=== PATIENT | female | born 1995 | race Caucasian/White ===

== ENCOUNTER → 2016-08-15 | Day surgery (SDC) | payer BC ==
[2016-08-08 13:56] VITALS: Ht 160 cm; Wt 53.6 kg
--- NOTE | 2016-08-14 21:30 | HISTORY & PHYSICAL EXAMINATION ---
DATE OF ADMISSION: 08/15/2016 DIAGNOSIS: Chronic tonsillitis. HISTORY OF PRESENT ILLNESS: This 20-year-old lady presented with recurrent chronic tonsillitis. PAST MEDICAL HISTORY: MEDICAL PROBLEMS: None. PREVIOUS SURGERIES: Hernia repair. MEDICATIONS: Sertraline, doxycycline and Ativan. ALLERGIES: No known drug allergies. FAMILY HISTORY: Negative. SOCIAL HISTORY: Negative. REVIEW OF SYSTEMS: Positive for anxiety. PHYSICAL EXAMINATION: GENERAL: WNWD female. VITAL SIGNS: 5 feet 2 inches and 115 pounds. HEAD: Normocephalic. EYES: Normal. EARS: Tympanic membranes intact. NOSE: Nasal passages swollen turbinates. THROAT: Oropharynx shows 3+ tonsillar hypertrophy. NECK: Supple. HEART: RRR. LUNGS: Clear. ABDOMEN: Soft. GENITOURINARY: Deferred. IMPRESSION: Chronic tonsillitis. PLAN: For adenotonsillectomy.
[~2016-08-15] VITALS: Ht 160 cm; Wt 53.6 kg
[~2016-08-15] MED LIST: ACETAMINOPHEN/HYDROCODONE ELIX 15 ML/CUP UDP PO PRN; ATROPINE SULFATE 0.1 MG/ML 5ML SYR IV PRN; BUPIVACAINE/EPINEPHRINE 0.5% MPF 1:200,000 30 ML VIAL ONE; CHECK SCOPOLAMINE PATCH PLACEMENT SCH; DEXAMETHASONE SOD INJ 4 MG/ML VIAL ONE; EpHEDrine SULFATE INJ 50 MG/ML AMP IV PRN; FENTANYL CITRATE INJ 50 MCG/1 ML 2 ML VIAL IV PRN; FENTANYL CITRATE INJ 50 MCG/1 ML 2 ML VIAL ONE; FEXO5TAB2 PO; GLYCOPYRROLATE INJ 0.2 MG/ML VIAL ONE; HYDR1SOL10 PO; LACTATED RINGER'S 1000ML 1,000 ML IV SCH; LIDOCAINE HCL 2% 2 ML VIAL (20MG/ML) ONE; LORA-741 PO; MIDAZOLAM HCL 1 MG/ML 2ML VIAL ONE; NEOSTIGMINE METHYLSULFATE 5 MG/5 ML SYR ONE; ONDANSETRON INJ 2 MG/ML 2 ML VIAL IV PRN; ONDANSETRON INJ 2 MG/ML 2 ML VIAL ONE; PROPOFOL IV EMULSION 10 MG/ML 20 ML VIAL IV ONE; SCOPOLAMINE 1.5 MG TDSY TD ONE; SODIUM CHLORIDE 0.9% 1000ML 1,000 ML IV SCH
--- NOTE | 2016-08-15 07:20 | History & Physical Bridge Note ---
H&P Re-Evaluation Bridge Note: I have examined the patient, reviewed the History & Physical and in the interval since the performance of the History & Physical I have noted the following changes of clinical significance: No changes noted
--- NOTE | 2016-08-15 07:28 | Discharge Instructions-SurgCtr ---
Discharge Instructions Date of Service August 15, 2016. Visit Reason for Visit: Chronic Tonsillitis Discharge Discharge Diagnosis / Problem: same Discharge Goals Goal(s): Improve disease control Activity Recommendations Activity Limitations: per Instructions/Follow-up section Anesthesia . Post Anesthesia Instructions: If you have had General Anesthesia or IV Sedation: * Do not drive today. * Resume driving when surgeon permits. * Do not make important decisions or sign legal documents today. * Call surgeon for: 1. Temperature elevations greater than 101 degrees F. 2. Uncontrollable pain. 3. Excessive bleeding. 4. Persistent nausea and vomiting. 5. Medication intolerance (nausea, vomiting or rash). * For nausea and vomiting use only clear liquids such as: tea, soda, bouillon until nausea subsides, then gradually increase diet as tolerated. * If you have any concerns or questions, call your surgeon's office. If physician is unavailable and it is an emergency, call 911 or go to the nearest emergency room. . Instructions / Follow-Up Instructions / Follow-Up ACTIVITY RECOMMENDATIONS: * During the first few days, activities should be limited. * Stay indoors for several days. * After 48 hours, activity can gradually be increased to normal activity. RETURN TO SCHOOL/WORK: * Return to school or work in one week. * No physical education for two weeks. OVER THE COUNTER MEDICATIONS: * You may use Tylenol * Avoid aspirin or aspirin containing products, e.g. as they may increase bleeding. SPECIAL CARE INSTRUCTIONS: * Avoid coughing or clearing the throat. * Do not use a straw. * A sore throat is expected frequently accompanied by pain radiating to the ears. This is normal. * Expect bad breath until "scabs" are healed. * Notify the doctor if bleeding occurs, vomiting, temperature greater than 101 degrees Fahrenheit. Call or cell phone: . * If bleeding occurs, it is usually in the first 24 hours or after the 5th day. If unable to reach the doctor, go to the nearest Emergency Department. Special Diet: * Fluids are very important and should be encouraged to maintain adequate hydration. * To maintain nutrition, eat soft foods and after 48 hours the consistency of foods can be increased. Examples are jello, soup, pasta, ice cream and mashed foods. FOLLOW UP VISIT: Follow-up visit with Dr. Vazquez in 2 weeks. Please call to schedule if not already scheduled. Diet Recommendations Home Diet: special diet Diet Texture: Mechanical Soft (ground) Pending Studies Studies pending at discharge: no Medical Emergencies . Who to Call and When: Medical Emergencies: If at any time you feel your situation is an emergency, please call 911 immediately. . Non-Emergent Contact Non-Emergency issues call your: Primary Care Provider . . "Provider Documentation" section prepared by Kierra Vazquez. . [place] Drug Monitoring Program Search Results: no issues identified
[2016-08-15 08:53] VITALS: TEMP 37.3
[2016-08-15 09:21] VITALS: BP 107/71; PULSE 56; O2SAT 100
--- NOTE | 2016-08-15 09:25 | Anesthesia Progress Nt - [facility] ---
Anesthesia Post Op Note Date & Time August 15, 2016 at 09:25 Vital Signs Pain Intensity: 2.0 Vital Signs Past 12 Hours Date Time Temp Pulse Resp B/P Pulse Ox O2 Delivery O2 Flow Rate FiO2 08/15/16 09:21 56 16 107/71 100 Room Air 08/15/16 08:53 37.3 65 16 117/49 100 Room Air 08/15/16 08:37 77 14 08/15/16 08:37 78 14 99 08/15/16 08:36 108/68 08/15/16 08:34 36.7 75 16 108/68 99 Room Air 08/15/16 08:32 86 20 99 08/15/16 08:32 84 20 08/15/16 08:31 116/81 08/15/16 08:27 93 20 99 08/15/16 08:27 94 20 08/15/16 08:26 112/77 08/15/16 08:22 94 20 08/15/16 08:22 95 20 99 08/15/16 08:21 113/71 08/15/16 08:17 89 17 98 08/15/16 08:17 90 17 08/15/16 08:16 118/79 08/15/16 08:12 99 19 100 08/15/16 08:12 100 19 08/15/16 08:11 129/71 08/15/16 08:07 95 13 08/15/16 08:07 96 13 100 08/15/16 08:06 136/79 08/15/16 08:03 134/86 08/15/16 08:02 36.5 106 20 134/86 100 Humidified Oxygen 6 08/15/16 06:29 37.0 94 18 129/81 99 Room Air Notes Mental Status: alert / awake / arousable, participated in evaluation Pt Amnestic to Procedure: Yes Nausea / Vomiting: adequately controlled Pain: adequately controlled Airway Patency, RR, SpO2: stable & adequate BP & HR: stable & adequate Hydration State: stable & adequate Anesthetic Complications: no major complications apparent
--- NOTE | 2016-08-15 12:11 | OPERATIVE REPORT ---
DATE OF OPERATION: 08/15/2016 PREOPERATIVE DIAGNOSES: Chronic tonsillitis and adenoid hypertrophy. POSTOPERATIVE DIAGNOSIS: Same. PROCEDURE: Adenotonsillectomy. SURGEON: Dr. Vazquez. ANESTHESIA: General endotracheal. COMPLICATIONS: None. BLOOD LOSS: 5 mL. HISTORY OF PRESENT ILLNESS: A 20-year-old with recurrent chronic tonsillitis. OPERATION AND FINDINGS: PROCEDURE: The patient was brought to the operating room and placed in supine position. General endotracheal anesthesia was induced, draped in the usual manner. Mouth gag was placed. Peritonsillar area was injected with .5% Sensorcaine, 1:200:000 strength Epinephrine. Soft palate retracted using a red Corrales catheter. Tonsillectomy performed using the coblation device coblating out the tonsil from anterior to the posterior pillar and from the superior pole to the inferior pole. Both tonsils were removed in a similar manner. Hemostasis was controlled with the coblation device. Adenoidectomy was performed using the coblation technique and hemostasis controlled using the coblation technique. The patient tolerated the procedure well and was taken to the recovery room in satisfactory condition. I attest to the content of the Intraoperative Record and any orders documented therein. Any exceptio ns are noted below.
== END | disposition home or self-care (01) ==
LOC: X.SURG 06:16
PROVIDERS: ATTEND Otolaryngology
DX: J35.01 Chronic tonsillitis (principal); J35.2 Hypertrophy of adenoids

== ENCOUNTER → 2017-03-04 | Outpatient (CLI) | payer BC ==
[~2017-03-04] MED LIST changes: -ACETAMINOPHEN/HYDROCODONE ELIX 15 ML/CUP UDP PO PRN; -ATROPINE SULFATE 0.1 MG/ML 5ML SYR IV PRN; -BUPIVACAINE/EPINEPHRINE 0.5% MPF 1:200,000 30 ML VIAL ONE; -CHECK SCOPOLAMINE PATCH PLACEMENT SCH; -DEXAMETHASONE SOD INJ 4 MG/ML VIAL ONE; -EpHEDrine SULFATE INJ 50 MG/ML AMP IV PRN; -FENTANYL CITRATE INJ 50 MCG/1 ML 2 ML VIAL IV PRN; -FENTANYL CITRATE INJ 50 MCG/1 ML 2 ML VIAL ONE; -GLYCOPYRROLATE INJ 0.2 MG/ML VIAL ONE; -HYDR1SOL10 PO; -LACTATED RINGER'S 1000ML 1,000 ML IV SCH; -LIDOCAINE HCL 2% 2 ML VIAL (20MG/ML) ONE; -MIDAZOLAM HCL 1 MG/ML 2ML VIAL ONE; -NEOSTIGMINE METHYLSULFATE 5 MG/5 ML SYR ONE; -ONDANSETRON INJ 2 MG/ML 2 ML VIAL IV PRN; -ONDANSETRON INJ 2 MG/ML 2 ML VIAL ONE; -PROPOFOL IV EMULSION 10 MG/ML 20 ML VIAL IV ONE; -SCOPOLAMINE 1.5 MG TDSY TD ONE; -SODIUM CHLORIDE 0.9% 1000ML 1,000 ML IV SCH
[2017-03-07 01:23] LABS: CHLAMYDIA TRACH RNA*** NOT DETECTED (NOT DETECTED); GC (NEIS GONORRHOEAE)RNA** NOT DETECTED (NOT DETECTED)
== END | disposition home or self-care (01) ==
LOC: C.LABSPEC 17:29
PROVIDERS: ATTEND Obstetrics & Gynecology
DX: Z11.3 Encounter for screening for infections with a predominantly sexual mode of transmission (principal)

== ENCOUNTER → 2017-03-04 | Outpatient (CLI) | payer BC | END | disposition home or self-care (01) | LOC: C.PAPS 09:08 | PROVIDERS: ATTEND Obstetrics & Gynecology | DX: Z01.419 Encounter for gynecological examination (general) (routine) without abnormal findings (principal); R87.616 Satisfactory cervical smear but lacking transformation zone ==